=== PATIENT | female | born 1940 | race Hispanic/Latino ===

== ENCOUNTER 2018-05-24 20:28 | Emergency (ER) | payer MEDICARE ==
[2018-05-24] MEDS ORDERED: TYLENOL PO ONE (21:43)
--- NOTE | 2018-05-24 21:47 | Emergency Department Report ---
HPI - General Chief Complaint: Medical Clearance Time Seen by Provider: 05/24/18 21:24 - HPI HPI: Room 9 The patient is a 78-year-old female presenting with chief complaint of fever. The patient was sent to [facility] for management of "psychotic disorder." [facility] that the patient to the ED for medical clearance secondary to "elevated vitals, cellulitis." The patient states she is erythema of both legs for approximately 1 week. She states the erythema began on the right leg that then spread to the left. Patient complains bilateral lower extremity discomfort and states she had a fever at [facility]. Patient states she received 1 dose of antibiotics at [facility] but does not recall the name Location: [See above] Duration: [See above] Quality: [See above] Severity: [See above] Modifying factors: [see above] Context: [see above] Mode of transportation: [not driving] ED Past Medical Hx - Past Medical History Previous Medical History?: Yes Hx Hypertension: Yes Hx CVA: Yes Hx Arthritis: Yes (osteo) Hx Psychiatric Treatment: Yes (bipolar, SI attempts) Additional medical history: impaired tissue integrity,hyperlipidemia - Surgical History Past Surgical History?: Yes Hx Cholecystectomy: Yes Hx Appendectomy: Yes - Family History Family history: no significant - Social History Smoking Status: Never Smoker Substance Use Type: None - Medications Home Medications: Home Medications Medication Instructions Recorded Confirmed Last Taken Type levoFLOXacin [Levaquin] 750 mg PO QDAY #10 tablet 05/25/18 Unknown Rx ED Review of Systems ROS: Stated complaint: HYPERTENSION Other details as noted in HPI Constitutional: fever Skin: change in color Psychiatric: other (psychosis) Physical Exam - Physical Exam Vital Signs: Vital Signs 05/24/18 05/24/18 20:57 21:14 Temperature 100.7 F H Pulse Rate 95 H Respiratory 20 20 Rate Blood Pressure 171/81 O2 Sat by Pulse 99 98 Oximetry Physical Exam: GENERAL: The patient is well-developed well-nourished female lying on stretcher not appearing to be in acute distress. [] HEENT: Normocephalic. Atraumatic. Extraocular motions are intact. Patient has moist mucous membranes. NECK: Supple. Trachea midline CHEST/LUNGS: Clear to auscultation. There is no respiratory distress noted. HEART/CARDIOVASCULAR: Regular. There is no tachycardia. There is no gallop rub or murmur. ABDOMEN: Abdomen is soft, nontender. Patient has normal bowel sounds. There is no abdominal distention. SKIN: There is circumferential erythema and increased warmth of bilateral distal shins. There is no diaphoresis. NEURO: The patient is awake and alert. The patient is cooperative. The patient has normal speech MUSCULOSKELETAL: There is no evidence of acute injury. ED Course Vital Signs 05/24/18 05/24/18 20:57 21:14 Temperature 100.7 F H Pulse Rate 95 H Respiratory 20 20 Rate Blood Pressure 171/81 O2 Sat by Pulse 99 98 Oximetry - Reevaluation(s) Reevaluation #1: 05/25/18 01:33 Systolic blood pressure improved to 116 ED Medical Decision Making - Lab Data Result diagrams: 05/24/18 21:45 05/24/18 21:56 Laboratory Tests 05/24/18 05/24/18 05/24/18 21:45 21:45 21:45 WBC 9.1 RBC 3.87 Hgb 12.5 Hct 36.8 MCV 95 MCH 32 MCHC 34 RDW 14.3 Plt Count 209 Lymph % (Auto) 34.3 Eagle % (Auto) 11.0 H Eos % (Auto) 2.1 Baso % (Auto) 0.4 Lymph # 3.1 Eagle # 1.0 H Eos # 0.2 Baso # 0.0 Seg Neutrophils % 52.2 Seg Neutrophils # 4.7 PT 12.9 INR 0.92 APTT 27.5 Sodium Potassium Chloride Carbon Dioxide Anion Gap BUN Creatinine Estimated GFR BUN/Creatinine Ratio Glucose Lactic Acid 1.10 Calcium Valproic Acid 05/24/18 05/24/18 21:53 21:56 WBC RBC Hgb Hct MCV MCH MCHC RDW Plt Count Lymph % (Auto) Eagle % (Auto) Eos % (Auto) Baso % (Auto) Lymph # Eagle # Eos # Baso # Seg Neutrophils % Seg Neutrophils # PT INR APTT Sodium 140 Potassium 3.9 Chloride 100.7 Carbon Dioxide 27 Anion Gap 16 BUN 23 H Creatinine 0.5 L Estimated GFR > 60 BUN/Creatinine Ratio 46 Glucose 107 H Lactic Acid Calcium 9.1 Valproic Acid 18.0 L - Differential Diagnosis cellulitis Critical care attestation.: If time is entered above; I have spent that time in minutes in the direct care of this critically ill patient, excluding procedure time. ED Disposition Clinical Impression: Fever, Leg erythema, Hypertension Disposition: [id number]/TX-[id number] PSY HOSP/PSY UNIT Is pt being admited?: No Does the pt Need Aspirin: No Condition: Stable Instructions: Hypertension (ED) Additional Instructions: Return to the emergency department immediately should you develop worsening symptoms, fever, inability to tolerate food or liquid or any other concerns. Prescriptions: levoFLOXacin [Levaquin] 750 mg PO QDAY #10 tablet Referrals: PRIMARY CARE, [Primary Care Provider] - 3-5 Days Time of Disposition: 01:35 ([place] to [facility])
[2018-05-24 22:17] LABS: Basophils % (Auto) 0.4 % (0.0-1.8); Eosinophils # (Auto) 0.2 K/mm3 (0.0-0.4); Eosinophils % (Auto) 2.1 % (0.0-4.3); Hematocrit 36.8 % (30.3-42.9); Hemoglobin 12.5 gm/dl (10.1-14.3); Lymphocytes # (Auto) 3.1 K/mm3 (1.2-5.4); Lymphocytes % (Auto) 34.3 % (13.4-35.0); Mean Corpuscular HGB Conc 34 % (30-34); Mean Corpuscular Hemoglobin 32 pg (28-32); Mean Corpuscular Volume 95 fl (79-97); Platelet Count 209 K/mm3 (140-440); Red Blood Count 3.87 M/mm3 (3.65-5.03); Red Cell Distribution Width 14.3 % (13.2-15.2)
[2018-05-24 22:28] LABS: BUN/Creatinine Ratio 46; Blood Urea Nitrogen 23 mg/dL (7-17); Calcium 9.1 mg/dL (8.4-10.2); Hemolysis Index 5
[2018-05-24] MEDS ORDERED: CATAPRES PO ONE (23:08)
[2018-05-24] MEDS ORDERED: PERCOCET 5/325 PO ONE (23:08)
[2018-05-24] MEDS ORDERED: LEVAQUIN PO ONE (23:09)
[2018-05-24 23:23] LABS: INR 0.92 (0.87-1.13); Partial Thromboplastin Time 27.5 Sec. (24.2-36.6)
[2018-05-25] MEDS ORDERED: CATAPRES PO ONE (00:08)
[2018-05-25 01:35] VITALS: BP 116/52
== END 2018-05-25 03:00 ==
LOC: ED 20:28
DX: I10 Essential (primary) hypertension (principal); R50.9 Fever, unspecified; L53.9 Erythematous condition, unspecified; Z88.6 Allergy status to analgesic agent; Z88.4 Allergy status to anesthetic agent; Z88.2 Allergy status to sulfonamides
CPT/HCPCS: 36415; 80048; 80164; 82140; 85025; 85610; 85730; 87040